=== PATIENT | male | born 1975 | race Caucasian/White ===

== ENCOUNTER 2016-11-12 15:24 | Emergency (ER) | payer MEDICAID ==
[~2016-11-12] VITALS: Ht 185.4 cm; Wt 89.4 kg
[~2016-11-12 15:24] MED LIST: ESCI20TA10 PO; GABA600T2 PO; PROP10TA PO; TRAZ100T15 PO
[2016-11-12] MEDS ORDERED: SODIUM CHLORIDE FLUSH 10ML SYR IVF ONE (16:00)
[2016-11-12] MEDS ORDERED: SODIUM CHLORIDE 0.9% 1,000ML IVBOLUS ONE (16:00)
[2016-11-12 16:33] LABS: DAU SCREEN DISCLAIMER
[2016-11-12 16:34] LABS: BLOOD UREA NITROGEN 9 mg/dL (7-18)
[2016-11-12 16:39] LABS: ASPARTATE AMINO TRANSFERASE 11 U/L (15-37)
[2016-11-12 16:45] LABS: IS PT STATUS REG ER OR PRE ER? YES
[2016-11-12 17:38] VITALS: BP 128/81
== END 2016-11-12 17:42 | disposition home or self-care (01) ==
LOC: ED 17:20
DX: J20.8 Acute bronchitis due to other specified organisms (principal); J44.9 Chronic obstructive pulmonary disease, unspecified; F10.239 Alcohol dependence with withdrawal, unspecified; F32.9 Major depressive disorder, single episode, unspecified; F41.1 Generalized anxiety disorder; F17.200 Nicotine dependence, unspecified, uncomplicated
CPT/HCPCS: 36415; 71020; 73610; 80053; 80307; 84484; 85025; 93005; 99283; J7030

== ENCOUNTER 2017-01-14 19:50 | Emergency (ER) | payer MEDICAID ==
[~2017-01-14] VITALS: Ht 185.4 cm; Wt 87.3 kg
[2017-01-14 20:59] LABS: ASPARTATE AMINO TRANSFERASE 34 U/L (15-37); BLOOD UREA NITROGEN 14 mg/dL (7-18)
[2017-01-14] MEDS ORDERED: ASPIRIN 81 MG TABLET CHEW PO ONE (21:00)
[2017-01-14] MEDS ORDERED: ASPIRIN 81 MG TABLET CHEW ONE (21:02)
[2017-01-14 21:05] LABS: IS PT STATUS REG ER OR PRE ER? YES
[2017-01-14] MEDS ORDERED: LORazepam 1MG TABLET PO ONE (22:00)
[2017-01-14] MEDS ORDERED: ACETAMINOPHEN 325 MG TABLET PO ONE (22:00)
[2017-01-14] MEDS ORDERED: ONDANSETRON ODT 4 MG PO ONE (22:00)
[2017-01-14] MEDS ORDERED: METOCLOPRAMIDE 5 MG/ML, 2ML ONE (22:15)
[2017-01-14] MEDS ORDERED: LORazepam 1MG TABLET ONE (22:15)
[2017-01-14] MEDS ORDERED: ACETAMINOPHEN 325 MG TABLET ONE (22:15)
[2017-01-14] MEDS ORDERED: DIPHENHYDRAMINE 50 MG/ML, 1ML ONE (22:16)
[2017-01-14] MEDS ORDERED: DIPHENHYDRAMINE 50 MG/ML, 1ML IVPush ONE (22:30)
[2017-01-14] MEDS ORDERED: METOCLOPRAMIDE 5 MG/ML, 2ML IVPush ONE (22:30)
[2017-01-14] MEDS ORDERED: SODIUM CHLORIDE 0.9% 1,000ML IVBOLUS ONE (22:30)
[2017-01-14] MEDS ORDERED: KETOROLAC 30 MG/1 ML IVPush ONE (22:30)
[2017-01-14] MEDS ORDERED: SODIUM CHLORIDE FLUSH 10ML SYR IVF ONE (22:30)
[2017-01-14 23:40] VITALS: BP 119/76
== END 2017-01-14 23:43 | disposition home or self-care (01) ==
LOC: ED 22:19
DX: R07.89 Other chest pain (principal); G43.009 Migraine without aura, not intractable, without status migrainosus; F41.9 Anxiety disorder, unspecified; F10.239 Alcohol dependence with withdrawal, unspecified; F32.9 Major depressive disorder, single episode, unspecified
CPT/HCPCS: 36415; 71010; 80053; 84484; 85025; 93005; 96361; 96374; 96375; 99285; J1200; J1885; J2765; J7030

== ENCOUNTER 2017-01-20 11:46 | Inpatient (IN) | payer MEDICAID ==
[~2017-01-20] VITALS: Ht 185.4 cm; Wt 92.7 kg
[2017-01-20] MEDS ORDERED: ONDANSETRON 2MG/ML, 2ML IVPush ONE (12:30)
[2017-01-20] MEDS ORDERED: SODIUM CHLORIDE FLUSH 10ML SYR IVF ONE (12:30)
[2017-01-20] MEDS ORDERED: SODIUM CHLORIDE 0.9% 1,000ML IVBOLUS ONE (12:30)
[2017-01-20] MEDS ORDERED: ONDANSETRON 2MG/ML, 2ML ONE (12:49)
[2017-01-20 12:52] LABS: ASPARTATE AMINO TRANSFERASE 27 U/L (15-37); BLOOD UREA NITROGEN 11 mg/dL (7-18)
[2017-01-20 12:57] LABS: IS PT STATUS REG ER OR PRE ER? YES
[2017-01-20] MEDS ORDERED: LORazepam 2 MG/ML, 1ML IVPush ONE (13:30)
[2017-01-20] MEDS ORDERED: CHLORDIAZEPOXIDE 25 MG CAPSULE PO PRN (13:30)
[2017-01-20 13:49] LABS: DAU SCREEN DISCLAIMER
[2017-01-20] MEDS ORDERED: LORazepam 2 MG/ML, 1ML ONE (13:57)
[2017-01-20 14:05] LABS: ACETAMINOPHEN < 2 mcg/mL (10-30)
[2017-01-20] MEDS ORDERED: METOCLOPRAMIDE 5 MG/ML, 2ML IVPush ONE (15:00)
[2017-01-20] MEDS ORDERED: KETOROLAC 30 MG/1 ML IVPush ONE (15:00)
[2017-01-20] MEDS ORDERED: DIPHENHYDRAMINE 50 MG/ML, 1ML IVPush ONE (15:00)
[2017-01-20] MEDS ORDERED: KETOROLAC 30 MG/1 ML ONE (15:08)
[2017-01-20] MEDS ORDERED: DIPHENHYDRAMINE 50 MG/ML, 1ML ONE (15:08)
[2017-01-20] MEDS ORDERED: METOCLOPRAMIDE 5 MG/ML, 2ML ONE (15:08)
[2017-01-20] MEDS ORDERED: METOCLOPRAMIDE 5 MG/ML, 2ML IVPush PRN (17:00)
[2017-01-20] MEDS ORDERED: PROMETHAZINE 25 MG/ML, 1ML IM PRN (17:00)
[2017-01-20] MEDS ORDERED: POLYETHYLENE GLYCOL 17 GM PACKET PO PRN (17:00)
[2017-01-20] MEDS ORDERED: ONDANSETRON 2MG/ML, 2ML IVPush PRN (17:00)
[2017-01-20] MEDS ORDERED: ACETAMINOPHEN 325 MG TABLET PO PRN (17:00)
[2017-01-20] MEDS ORDERED: BISACODYL 10 MG SUPP PR PRN (17:00)
[2017-01-20 18:00] VITALS: BP 123/75
[2017-01-20] MEDS: ENOXAPARIN 40 MG/0.4 ML SQ SCH (21:51)
[2017-01-20] MEDS: BACLOFEN 10 MG TABLET PO SCH (21:52)
[2017-01-20] MEDS: POTASSIUM CHLORIDE 20 MEQ, MAGNESIUM SULFATE 2 GM, THIAMINE 100 MG, MVI ADULT 10 ML, FO... IV SCH (21:52)
[2017-01-20] MEDS: LORazepam 2 MG/ML, 1ML IVPush PRN (21:52)
[2017-01-21] MEDS: POTASSIUM CHLORIDE 20 MEQ, MAGNESIUM SULFATE 2 GM, THIAMINE 100 MG, MVI ADULT 10 ML, FO... IV SCH ×2 (00:51→22:30)
[2017-01-21 03:10] VITALS: BP 121/72
[2017-01-21] MEDS: LORazepam 2 MG/ML, 1ML IVPush PRN ×5 (03:30→21:43)
[2017-01-21 05:43] LABS: BLOOD UREA NITROGEN 17 mg/dL (7-18)
[2017-01-21 07:50] VITALS: BP 105/68
[2017-01-21] MEDS: BACLOFEN 10 MG TABLET PO SCH ×2 (08:28→20:52)
[2017-01-21 13:31] VITALS: BP 121/80
[2017-01-21] MEDS ORDERED: METHOCARBAMOL 750 MG TABLET PO PRN (15:00)
[2017-01-21] MEDS ORDERED: KETOROLAC 30 MG/1 ML IVPush PRN (15:00)
[2017-01-21] MEDS ORDERED: LORazepam 2 MG/ML, 1ML IVPush ONE (15:00)
[2017-01-21] MEDS ORDERED: GADOBUTROL 10 MMOL/10 ML PFS ONE (15:51)
[2017-01-21] MEDS: ENOXAPARIN 40 MG/0.4 ML SQ SCH (17:49)
[2017-01-21 20:20] VITALS: BP 137/84
[2017-01-21] MEDS: CHLORDIAZEPOXIDE 25 MG CAPSULE PO SCH (20:52)
[2017-01-21] MEDS: NICOTINE 21 MG/24 HR PATCH.TD24 TD SCH (22:30)
[2017-01-22] VITALS (11 sets, daily range): BP systolic 106–142; BP diastolic 64–87
[2017-01-22] MEDS: LORazepam 2 MG/ML, 1ML IVPush PRN ×6 (01:18→22:01)
[2017-01-22] MEDS: DOCUSATE 100 MG CAPSULE PO PRN ×2 (06:22→17:26)
[2017-01-22] MEDS: FOLIC ACID 1 MG TABLET PO SCH (08:07)
[2017-01-22] MEDS: THIAMINE 100MG TABLET PO SCH (08:07)
[2017-01-22] MEDS: MULTIVITAMIN 1 TABLET PO SCH (08:07)
[2017-01-22] MEDS: BACLOFEN 10 MG TABLET PO SCH ×2 (08:08→22:01)
[2017-01-22] MEDS: CHLORDIAZEPOXIDE 25 MG CAPSULE PO SCH ×2 (08:08→22:00)
[2017-01-22] MEDS: CYANOCOBALAMIN 1,000 MCG TABLET PO SCH (08:08)
[2017-01-22] MEDS ORDERED: NICOTINE 21 MG/24 HR PATCH.TD24 TD SCH (09:00)
[2017-01-22] MEDS ORDERED: NICOTINE 21 MG/24 HR PATCH.TD24 TD ONE (10:30)
[2017-01-22] MEDS ORDERED: FLUOXETINE 20 MG CAPSULE PO ONE (11:44)
[2017-01-22] MEDS: ENOXAPARIN 40 MG/0.4 ML SQ SCH (17:19)
[2017-01-22] MEDS ORDERED: POTASSIUM CHLORIDE 20 MEQ, MAGNESIUM SULFATE 2 GM, THIAMINE 100 MG, MVI ADULT 10 ML, FO... IV SCH (21:52)
[2017-01-22] MEDS: POTASSIUM CHLORIDE 20 MEQ, MAGNESIUM SULFATE 2 GM, THIAMINE 100 MG, MVI ADULT 10 ML, FO... IV SCH (22:25)
[2017-01-23 01:14] VITALS: BP 116/76
[2017-01-23 01:15] VITALS: BP_SYST 120; BP_SYST 125; BP_DIAS 69; BP_DIAS 77
[2017-01-23] MEDS: LORazepam 2 MG/ML, 1ML IVPush PRN (01:19)
[2017-01-23 07:19] VITALS: BP_SYST 112; BP_SYST 113; BP_SYST 118; BP_DIAS 72; BP_DIAS 73; BP_DIAS 77
[2017-01-23] MEDS: MULTIVITAMIN 1 TABLET PO SCH (08:40)
[2017-01-23] MEDS: CYANOCOBALAMIN 1,000 MCG TABLET PO SCH (08:40)
[2017-01-23] MEDS: THIAMINE 100MG TABLET PO SCH (08:40)
[2017-01-23] MEDS: CHLORDIAZEPOXIDE 25 MG CAPSULE PO SCH ×3 (08:40→21:25)
[2017-01-23] MEDS: FOLIC ACID 1 MG TABLET PO SCH (08:40)
[2017-01-23] MEDS: FLUOXETINE 20 MG CAPSULE PO SCH (08:40)
[2017-01-23] MEDS: BACLOFEN 10 MG TABLET PO SCH ×2 (08:40→21:25)
[2017-01-23] MEDS: NICOTINE 21 MG/24 HR PATCH.TD24 TD SCH (08:45)
[2017-01-23] MEDS ORDERED: LORazepam 1MG TABLET PO PRN (10:30)
[2017-01-23 12:27] VITALS: BP_SYST 121; BP_SYST 124; BP_SYST 129; BP_DIAS 79; BP_DIAS 83; BP_DIAS 85
[2017-01-23] MEDS ORDERED: LORazepam 2 MG/ML, 1ML IVPush PRN (14:00)
[2017-01-23] MEDS: ENOXAPARIN 40 MG/0.4 ML SQ SCH (17:28)
[2017-01-23 18:27] VITALS: BP_SYST 119; BP_SYST 123; BP_SYST 124; BP_DIAS 69; BP_DIAS 79; BP_DIAS 81
[2017-01-24 00:41] VITALS: BP 117/77
[2017-01-24 06:45] VITALS: BP_SYST 109; BP_SYST 111; BP_SYST 113; BP_DIAS 75; BP_DIAS 78; BP_DIAS 82
[2017-01-24] MEDS: NICOTINE 21 MG/24 HR PATCH.TD24 TD SCH (07:54)
[2017-01-24] MEDS: MULTIVITAMIN 1 TABLET PO SCH (07:55)
[2017-01-24] MEDS: FOLIC ACID 1 MG TABLET PO SCH (07:55)
[2017-01-24] MEDS: CHLORDIAZEPOXIDE 25 MG CAPSULE PO SCH ×2 (07:55→15:42)
[2017-01-24] MEDS: FLUOXETINE 20 MG CAPSULE PO SCH (07:56)
[2017-01-24] MEDS: BACLOFEN 10 MG TABLET PO SCH (07:56)
[2017-01-24] MEDS: THIAMINE 100MG TABLET PO SCH (07:56)
[2017-01-24] MEDS: CYANOCOBALAMIN 1,000 MCG TABLET PO SCH (07:57)
[2017-01-24 11:19] VITALS: BP 124/84
== END 2017-01-24 19:20 | DRG 897 ==
LOC: ED 15:14 → EDIP 15:59 → OBSVTOIN 16:38 → 3NE 17:41 → 4EST 01-21 23:58 → 3E 01-24 10:47
PROVIDERS: ADMIT Internal Medicine
DX: F10.239 Alcohol dependence with withdrawal, unspecified (principal); J98.11 Atelectasis; R45.851 Suicidal ideations; E86.0 Dehydration; F32.9 Major depressive disorder, single episode, unspecified; G44.209 Tension-type headache, unspecified, not intractable; Z91.5 Personal history of self-harm; Z59.0 Homelessness
CPT/HCPCS: 36415; 70450; 70553; 71010; 72156; 80048; 80053; 80307; 80329; 81003; 82533; 82565; 82607; 82746; 83735; 84100; 84443; 84484; 85025; 85610; 93005; 96361; 96374; 96375; A9585; J1650; J1885; J2405; J3411; J3475; J3480; J7042; G0378; G0480; J1200; J2060; J2765; J3420; J7030

== ENCOUNTER 2017-01-27 16:50 | Emergency (ER) | payer MEDICAID ==
[~2017-01-27] VITALS: Ht 185.4 cm; Wt 88.0 kg
[2017-01-27 17:54] LABS: BLOOD UREA NITROGEN 14 mg/dL (7-18)
[2017-01-27 19:19] VITALS: BP 96/51
== END 2017-01-27 19:21 | disposition home or self-care (01) ==
LOC: ED 19:00
DX: F10.129 Alcohol abuse with intoxication, unspecified (principal); F19.129 Other psychoactive substance abuse with intoxication, unspecified; F13.19 Sedative, hypnotic or anxiolytic abuse with unspecified sedative, hypnotic or anxiolytic-induced disorder; F19.10 Other psychoactive substance abuse, uncomplicated; G43.909 Migraine, unspecified, not intractable, without status migrainosus; R53.1 Weakness
CPT/HCPCS: 36415; 80048; 80307; 85025; 93005; 99285